=== PATIENT | female | born 1985 | race Caucasian/White ===

== ENCOUNTER → 2025-02-28 | Outpatient (REF) | payer OTHER | LOC: M PLALAB 10:09 | PROVIDERS: ATTEND Advanced Practice Midwife | DX: Z34.80 Encounter for supervision of other normal pregnancy, unspecified trimester (principal) ==

== ENCOUNTER → 2025-02-28 | Outpatient (CLI) | payer OTHER ==
[2025-02-28 14:32] LABS: PLATELET COUNT, AUTOMATED 289 10^3/uL (150-450)
[2025-02-28 15:13] LABS: HIV 1&2 SCREEN NEGATIVE (NEGATIVE)
[2025-02-28 15:20] LABS: HEPATITIS C VIRUS ABY INDEX 0.10 INDEX (<0.8)
[2025-02-28 15:38] LABS: Trichomonas vaginalis (AMP) NOT DETECTED (NEGATIVE)
[2025-02-28 16:01] LABS: GC DNA AMPLIFICATION NEGATIVE (NEGATIVE)
== END ==
LOC: M PLALAB 10:38
PROVIDERS: ATTEND Advanced Practice Midwife
DX: Z34.80 Encounter for supervision of other normal pregnancy, unspecified trimester (principal)